=== PATIENT | female | born 1985 | race Asian ===

== ENCOUNTER 2024-12-11 05:49 | Inpatient (IN) ==
[2024-12-11] MEDS ORDERED: OXYTOCIN 30 UNITS/NSS 30 UNITS/500 ML BAG IV PRN ×2 (07:25→08:00)
[2024-12-11] MEDS ORDERED: LACTATED RINGER'S 1,000 ML IV PRN (07:25)
[2024-12-11] MEDS: OXYTOCIN 10 UNITS/ML VIAL ONE (07:34)
[2024-12-11] MEDS ORDERED: HYDROCORTISONE ACETATE 25 MG SUPP PR PRN (08:00)
[2024-12-11] MEDS ORDERED: BENZOCAINE 20% SPRY 85 APPLN/85 GM CAN EXT PRN (08:00)
[2024-12-11] MEDS ORDERED: ACETAMINOPHEN 325 MG TAB PO PRN (08:00)
--- NOTE | 2024-12-11 08:03 | Delivery Summary ---
Vaginal Delivery Summary Date of Service December 11, 2024 Vaginal Delivery Summary and 2nd Degree LAC Initially on presentation patient and partner were declining evaluation. Agreed to evaluation after intolerance of labor was noted. Patient admitted in precipitous labor and was found to be complete complete +2 station at time of evaluation. Patient was spontaneously pushing. Patient pushed over several contractions to achieve delivery. Head of the delivered without difficulty quickly followed by shoulders and body. was noted to be vigorous upon delivery and a 1 minute delayed cord clamping was initiated. remained on maternal abdomen. There is noted to be bleeding around the placenta and as result the cord was double clamped and cut so placenta could be delivered. Cord blood was obtained and attention after which the placenta was delivered intact with three-vessel cord gentle cord traction. On inspection of perineum, vagina and cervix there is noted to be a second-degree perineal laceration which repaired with 3-0 Vicryl traditional crown stitch. Needle, sponge and instrument counts were correct at the completion of the case. Both mother and stable immediate postdelivery timeframe. No complications noted and EBL of 600. [facility] Vaginal Delivery Charge Delivery Type Details: and 2nd Degree LAC
[2024-12-11] MEDS: LIDOCAINE 1% LOCAL 20 ML VIAL INFIL PRN (08:04)
[2024-12-11] MEDS: OXYTOCIN 10 UNITS/ML VIAL IM ONE (09:21)
[2024-12-11] MEDS: FERROUS SULFATE 325 MG TAB PO SCH (09:28)
[2024-12-11] MEDS: IBUPROFEN 600 MG TAB PO PRN (09:29)
[2024-12-11] MEDS: PRENATAL VITAMIN 1 TAB PO SCH (09:29)
[2024-12-11] MEDS: DOCUSATE SODIUM 100 MG CAP PO SCH (09:29)
[2024-12-11] MEDS: DIPHTHER/TETAN/PERTUS Vaccine (Tdap, Adol/Adult) 0.5mL IM ONE (09:33)
--- NOTE | 2024-12-12 06:09 | Obstetrical Progress Note ---
Date of Service December 12, 2024 Assessment & Plan (1) Elderly primigravida: Plan Assessment and plan 39 yo post- day 1 s/p ] with 2nd degree laceration. Fells well today. Vital signs stable Continue post- care Encourage ambulation and Pain controlled with ibuprofen Hgb stable Discharge home tomorrow, follow up with Dr. Mae in 6 weeks. Admission and Anticipated Discharge Date Admission Date: December 11, 2024 Subjective Post- HPI 39 yo post- day 1 s/p with 2nd degree laceration. Ambulation: ambulating normally Voiding: no voiding problems Passing Gas:: Yes Diet Tolerance:: regular diet Lochia:: Small Feeding Type:: breast feeding Current Pain Level:5-6 while moving, well controlled with analgesics. Resting comfortably this AM in NAD. Denies MARIO, CP, SOB, N/V/D, LE pain/swelling. Review of Systems Review of Systems: As per HPI Physical Exam Physical Exam: Post- PE General: patient resting comfortably, NAD, non-toxic in appearance, AA&O x 4, answers questions appropriately. Skin: warm, dry, intact HEENT: NC/AT, anicteric sclera, conjunctiva without injection, moist mucus membranes. Heart: +S1/S2, regular, no m/r/g Lungs: equal air entry bilaterally, no rales/rhonchi/wheezes Abd: +BS, soft, NT/ND, uterine fundus firm at umbilicus. Ext: warm, no clubbing/cyanosis or edema, Brian's neg. Neuro: nonfocal, patient AA&O x 4, speech intact, no facial droop, moving all extremities on command. Results & Data Vital Signs (Past 12 Hours) Vital Signs Temp Pulse Resp BP Pulse Ox O2 Del Method 12/12/24 03:25 36.8 C 64 18 98/59 L 96 Room Air 12/12/24 00:03 37.1 C 71 18 106/70 98 Room Air 12/11/24 19:25 37.1 C 91 H 18 107/72 98 Room Air Resident Activity Tracking Resident Involvement: Resident Care Provided Care Provided: Adult [facility]
[2024-12-12 06:59] LABS: Hematocrit (blood only) 28.5 % (37.0-47.0); Hemoglobin 9.4 g/dl (12.0-16.0)
[2024-12-12 23:11] VITALS: RESP 16; TEMP 98.1
--- NOTE | 2024-12-13 06:42 | Obstetrical Progress Note ---
Date of Service December 13, 2024 Assessment & Plan (1) Elderly primigravida: Plan Assessment and plan 39 yo post- day 2 s/p ] with 2nd degree laceration. Fells well today. Vital signs stable Continue post- care Encourage ambulation and Pain controlled with ibuprofen Discharge home today, follow up with Dr. Mae in 6 weeks. Admission and Anticipated Discharge Date Admission Date: December 11, 2024 Supervising Physician Co-Signing Physician Notes Resident Physician Supervision Note: I was present with Dr. Rouse during the history and exam. I discussed the case with the resident and agree with the findings and plan as documented in the note. Any exceptions or clarifications are listed here: doing well, stable, eating, voiding, ambulating, . abd soft ff 2 down nt, ext nt calves. ppd#2 s/p . doing well ready for dc home, rhpos, ri. . instructions reviewed. f/u 6 wk pp check Documented By: Camelia Castellano MD, FACOG Subjective Post- HPI 39 yo post- day 2 s/p with 2nd degree laceration. Ambulation: ambulating normally Voiding: no voiding problems Passing Gas:: Yes Diet Tolerance:: regular diet Lochia:: Small Feeding Type:: breast feeding Current Pain Level: slight pain while moving, well controlled with analgesics. Resting comfortably this AM in NAD. Denies MARIO, CP, SOB, N/V/D, LE pain/swelling. Review of Systems Review of Systems: As per HPI Physical Exam Physical Exam: Post- PE General: patient resting comfortably, NAD, non-toxic in appearance, AA&O x 4, answers questions appropriately. Skin: warm, dry, intact HEENT: NC/AT, anicteric sclera, conjunctiva without injection, moist mucus membranes. Heart: +S1/S2, regular, no m/r/g Lungs: equal air entry bilaterally, no rales/rhonchi/wheezes Abd: +BS, soft, NT/ND, uterine fundus firm at umbilicus. Ext: warm, no clubbing/cyanosis or edema, Brian's neg. Neuro: nonfocal, patient AA&O x 4, speech intact, no facial droop, moving all extremities on command. Results & Data Vital Signs (Past 12 Hours) Vital Signs Temp Pulse Resp BP Pulse Ox O2 Del Method 12/12/24 23:10 36.7 C 62 16 102/63 98 Room Air 12/12/24 19:02 37.1 C 80 18 100/62 98 Room Air Resident Activity Tracking Resident Involvement: Resident Care Provided Care Provided: Adult [facility] Medicine
[2024-12-13 10:54] VITALS: O2SAT 97
[2024-12-13 14:03] VITALS: BP 99/65; PULSE 85
== END 2024-12-13 12:31 | disposition home or self-care (01) | DRG 807 ==
LOC: OPB 05:49 → 4S1 05:54 → 4E2 11:11